=== PATIENT | male | born 1960 | race Caucasian/White ===

== ENCOUNTER → 2018-09-20 07:39 | Outpatient (CLI) | payer OTHER ==
[2014-12-26 07:28] VITALS: BMI 21.7
[~2018-09-20 07:39] MED LIST: ANUSOL-HC 2.5%30 GM TOPICAL; CALTRATE 600 M600 M1 PO; CATAPRES0.3 MG PO; COZAAR50 MG PO; EXCEDRIN PO; FLOMAX0.4 MG PO; FLUTICASONE PRO16 GM NASAL; MYLANTA / MAALO30 ML PO; NORVASC10 MG PO; PRAVACHOL20 MG PO; PRILOSEC20 MG PO; PROPRANOLOL HCL20 MG PO
== END | disposition home or self-care (01) ==
LOC: D.OPS 07:39
PROVIDERS: ATTEND Surgery
DX: K21.9 Gastro-esophageal reflux disease without esophagitis (principal)

== ENCOUNTER 2018-09-27 05:09 | Day surgery (SDC) | payer OTHER ==
[~2018-09-27] VITALS: Ht 182.9 cm; Wt 81.6 kg
[~2018-09-27 05:09] MED LIST changes: -EXCEDRIN PO; -NORVASC10 MG PO
[2018-09-27 06:03] LABS: HEMATOCRIT 42.2 % (42.0-54.0); HEMOGLOBIN 15.2 g/dL (13.5-17.5); MCH 30.8 pg (26.0-34.0); MCV 85.4 fL (80.0-100.0); MEAN PLATELET VOLUME 9.6 fL (7.4-10.4); RBC 4.94 10x6/uL (4.20-6.10); RDW 13.3 % (11.5-14.5); WBC 5.6 10x3/uL (4.8-10.8)
[2018-09-27] MEDS ORDERED: NORVASC10 MG PO (06:15)
[2018-09-27 06:18] LABS: INR 0.99 (0.85-1.17); PROTIME 12.6 SECONDS (11.6-15.0)
[2018-09-27] MEDS ORDERED: EXCEDRIN PO (06:18)
[2018-09-27 06:32] LABS: ALBUMIN 4.2 g/dL (3.4-5.0); ALKALINE PHOSPHATASE 76 U/L (46-116); ALT (SGPT) 26 U/L (10-68); CALC OSMOLALITY 287 mosm/kg (275-300); CALCIUM 8.9 mg/dL (8.5-10.1); CHLORIDE - SERUM 106 mmol/L (98-107); CREATININE - SERUM 0.9 mg/dL (0.6-1.3); GLUCOSE 99 mg/dL (74-106); POTASSIUM - SERUM 3.4 mmol/L (3.5-5.1); PROTEIN - SERUM 7.4 g/dL (6.4-8.2); SODIUM 145 mmol/L (136-145); UREA NITROGEN 11 mg/dL (7-18); eGFR NON AFRICAN AMERICAN > 90 mL/min (90-120)
[2018-09-27 06:40] VITALS: BP 154/93; Ht 182.9 cm; Wt 81.6 kg
--- NOTE | 2018-09-27 09:31 | OP ---
PATIENT NAME: ARTURO PATEL MEDICAL RECORD: [id number] :60 LOCATION:D[facility] ADMISSION DATE: SURGEON: ARTURO CORONEL MD DATE OF OPERATION: 09/27/2018 SURGEON: Arturo Coronel MD ANESTHESIA: General anesthesia by Sugar Canales CRNA. DIAGNOSIS: Obstructive BPH. PROCEDURE: Transurethral resection of the prostate (TURP). FINDINGS: Bilateral lateral lobe obstruction with a small median lobe. Single ureteral orifices bilaterally with no bladder tumors. SPECIMENS: Prostate resection chips. BLOOD LOSS: Minimal. CLINICAL HISTORY: This is a 58-year-old male, who is a prisoner. He has symptoms of obstructive BPH, which has not responded to Flomax and tamsulosin. He comes now to have the transurethral resection of the prostate done. He was given Levaquin wood barrel reconditioner to the OR due to several drug allergies. DESCRIPTION OF PROCEDURE: The patient was given induction of general anesthesia. He was then placed into the dorsal lithotomy position. He was prepped and draped. A 17-Arabic cystoscope with 30-degree lens was used for visualization. Penile urethra shows no obstruction or stricture. The prostate shows bilateral lateral lobe obstruction. There is a small median lobe. The bladder shows minimal trabeculation. There are single ureteral orifices located at a distance away from the bladder neck. No bladder tumors were seen. We then switched to the 26-Arabic resectoscope with a 24-Arabic resection loop. We used the bipolar cautery with normal saline for irrigation. I had to use the male sound to allow the scope to pass through the urethral meatus. The resection was performed from the bladder neck level to just proximal to the verumontanum. The posterior floor was taken down first, then each of the lateral lobes in turn was taken down. The patient had really minimal vascularity of the prostate. Any arterial bleeding that was seen was immediately cauterized. At the end of the procedure, the resection chips were removed using the Rosa evacuator. No further chips were seen in the bladder. Any venous bleeding that I could see was also cauterized. The drainage was very clear. We placed a 24-Arabic Benson catheter into the bladder for drainage. The balloon was inflated with 20 cc of sterile water. The patient will be returning to the senior care facility today. I have given instructions for the senior care to remove the Benson catheter in 1 week's time. TRANSINT:[id number] Voice Confirmation ID: [id number] DOCUMENT ID: [id number] OPERATIVE REPORT [id number] ARTURO PATEL, ARTURO Cordova MD at 0931 CC: [id number] DICTATION DATE: 09/27/18829 SETTER INDUCTION HEATING EQUIPMENT: 09/27/18 0841 [address] [place] [id number] [place] [id number]
--- NOTE | 2018-09-27 09:42 | NUR ---
0940 O2 96% ON 2.5L [place] DIET SERVED.
== END 2018-09-27 11:20 ==
LOC: D.OPS 05:09
PROVIDERS: Anesthesiology; ATTEND Urology
DX: N40.1 Benign prostatic hyperplasia with lower urinary tract symptoms (principal); N13.8 Other obstructive and reflux uropathy; Z01.812 Encounter for preprocedural laboratory examination